=== PATIENT | female | born 1960 | race African-American/Black ===

== ENCOUNTER 2024-05-21 15:18 | Emergency (ER) | payer MEDICARE, SELFPAY ==
[2024-05-21 15:48] VITALS: BP 133/79; PULSE 69; RESP 16; TEMP 36.5; O2SAT 98
--- NOTE | 2024-05-21 16:11 | ED.URI ---
HPI - URI/Sore Throat General Chief Complaint: Upper Respiratory Infection Stated Complaint: Cough Time Seen by Provider: 05/21/24 16:12 Source: patient Mode of arrival: ambulatory Limitations: no limitations History of Present Illness HPI Narrative: 63 yo F presents with c/o cough for 1 wk. Afebrile. No CP or SOB. Reports muscle soreness from coughing. Taking OTC mucinex. Current every day smoker. has albuterol inhaler, just started using today. all systems reviewed and negative except as noted above. Related Data Home Medications Medication Instructions Recorded Confirmed atorvastatin 40 mg tablet 40 mg PO DAILY 05/21/24 05/21/24 bupropion HCl 300 mg 24 hr tablet, 300 mg PO DAILY 05/21/24 05/21/24 extended release empagliflozin 10 mg tablet 10 mg PO DAILY 05/21/24 05/21/24 (Jardiance) fluticasone propionate 50 See Rx Instructions .Route .COMPLEX 05/21/24 05/21/24 mcg/actuation nasal spray,suspension hydrochlorothiazide 25 mg tablet 25 mg PO DAILY 05/21/24 05/21/24 letrozole 2.5 mg tablet 2.5 mg PO DAILY 05/21/24 05/21/24 metformin 500 mg tablet,extended 500 mg PO DAILY 05/21/24 05/21/24 release 24 hr metoprolol succinate 100 mg 100 mg PO DAILY 05/21/24 05/21/24 tablet,extended release 24 hr Allergies Allergy/AdvReac Type Severity Reaction Status Date / Time Penicillins Allergy Mild Hives Verified 05/21/24 15:55 Review of Systems Review of Systems: CONSTITUTIONAL: Denies fever, chills, or sweats. reports fatigue. EYES: Denies visual changes, redness, or discharge. ENT: Denies rhinorrhea, congestion, sore throat, or otalgia. CARDIOVASCULAR: Denies chest pain, palpitations, or edema. RESPIRATORY: Reports cough. Denies dyspnea. GASTROINTESTINAL: Denies abdominal pain, nausea, vomiting, or diarrhea. GENITOURINARY: Denies dysuria or hematuria. SKIN: Denies rash or itching. MUSCULOSKELETAL: Denies back pain, joint pain, or myalgia. NEUROLOGIC: Denies headache, numbness, or weakness. PSYCHIATRIC: Denies anxiety or depression. All other systems reviewed are negative, except as documented in HPI. PMFSH Comments At time of signature, agree with nursing past medical, surgical, social and family history. There is no relevant family history pertinent to the presenting complaint. Exam Narrative: GENERAL: This is a well-nourished, well-developed patient, in no apparent distress. HEAD: normocephalic, atraumatic. EYES: PERRL. Sclera clear/white. Vision is grossly intact. EARS: External ears normal, auditory canals clear and without drainage, TMs normal without perforation. Hearing grossly intact. NOSE: External nose normal with no obvious nasal discharge, nares without redness, no rhinorrhea. THROAT: Mucous membranes moist, posterior pharynx clear. NECK: Neck supple, non-tender without lymphadenopathy, masses or thyromegaly. CARDIOVASCULAR: Regular rate and rhythm without murmurs, gallops, or rubs. RESPIRATORY: Decreased on inspiration throughout all lung [place]. Breath sounds equal bilaterally. No wheezes, rales, or rhonchi. SKIN: warm, Dry, intact with no suspicious lesions or rash, good texture and turgor. NEURO: awake, alert, and oriented to person, place and time. There were no obvious focal neurologic abnormalities. EXTREMITIES: No joint tenderness, effusion, or edema noted. Course Course Level of Care: Express Care Visit Vital Signs Vital signs: Vital Signs Temperature 36.5 C 05/21/24 15:48 Pulse Rate 69 05/21/24 15:48 Respiratory Rate 16 05/21/24 15:48 Blood Pressure 133/79 05/21/24 15:48 Pulse Oximetry 98 05/21/24 15:48 Oxygen Delivery Room Air 05/21/24 15:48 Temperature 36.5 C 05/21/24 15:48 Pulse Rate 69 05/21/24 15:48 Respiratory Rate 16 05/21/24 15:48 Blood Pressure 133/79 05/21/24 15:48 Pulse Oximetry 98 05/21/24 15:48 Oxygen Delivery Room Air 05/21/24 15:48 Reviewed MDM - URI/Sore Throat MDM Narrative Medical d
== END 2024-05-21 16:32 | disposition home or self-care (01) ==
PROVIDERS: Emergency Provider Nurse Practitioner Family; PCP Internal Medicine
DX: J20.9 Acute bronchitis, unspecified (principal); E78.00 Pure hypercholesterolemia, unspecified; I10 Essential (primary) hypertension; E11.9 Type 2 diabetes mellitus without complications; Z79.84 Long term (current) use of oral hypoglycemic drugs; F41.9 Anxiety disorder, unspecified; Z85.3 Personal history of malignant neoplasm of breast
CPT/HCPCS: 99203; G0463